=== PATIENT | female | born 1995 | race Caucasian/White ===

== ENCOUNTER 2020-06-23 07:50 | Emergency (ER) | payer OTHER ==
[~2020-06-23] VITALS: Ht 165.1 cm; Wt 59.9 kg
[2020-06-23 07:59] VITALS: BP 122/72
== END 2020-06-23 08:17 | disposition home or self-care (01) ==
LOC: ER 07:53
DX: J06.9 Acute upper respiratory infection, unspecified (principal)

== ENCOUNTER 2020-11-07 17:38 | Emergency (ER) | payer OTHER ==
[~2020-11-07] VITALS: Ht 165.1 cm; Wt 57.6 kg
[2020-11-07 18:06] VITALS: BP 115/83
--- NOTE | 2020-11-07 18:16 | NUR ---
URINE SENT TO LAB
[2020-11-07 18:27] LABS: BILIRUBIN,URINE Negative (NEGATIVE); COLOR,URINE YELLOW (YELLOW); LEUKOCYTE ESTERASE ,URINE Negative (NEGATIVE); NITRITE, URINE Negative (NEGATIVE); PH,URINE 5.5 (5.0-8.0); PROTEIN,URINE Negative (NEGATIVE); UGLUCOSE Negative (NEGATIVE); UROBILINOGEN,URINE 0.2 EU/dL (0.2)
[2020-11-07 18:37] LABS: BACTERIA,URINE Few /HPF (None Seen); RBC,URINE 0-2 /HPF (0-2); WBC,URINE 0-2 /HPF (0-3)
[2020-11-07] MEDS ORDERED: IBUPROFEN 600 MG TABLET PO ONE (19:00)
--- NOTE | 2020-11-07 19:47 | NUR ---
PT LEFT WITHOUT ACI
== END 2020-11-07 19:47 | disposition home or self-care (01) ==
LOC: ER 17:41
DX: N34.2 Other urethritis (principal)
CPT/HCPCS: 81001; 84703-TC

== ENCOUNTER 2021-07-20 14:07 | Emergency (ER) | payer OTHER ==
[~2021-07-20] VITALS: Ht 165.1 cm; Wt 62.6 kg
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
[2021-07-20] MEDS ORDERED: CEPH500C2 PO (14:52)
[2021-07-20] MEDS ORDERED: MUPI22OI2 TP (14:53)
[2021-07-20] MEDS: BACITRACIN ZINC OINT PACKET 1 EA PACKET TP ONE (15:03)
[2021-07-20 15:33] VITALS: BP 126/85
--- NOTE | 2021-07-20 15:33 | NUR ---
Patient discharged to home in stable condition. Written and verbal after care instructions given. Patient verbalizes understanding of instruction.
== END 2021-07-20 15:33 | disposition home or self-care (01) ==
LOC: ER 14:10
DX: L03.113 Cellulitis of right upper limb (principal)

== ENCOUNTER 2022-11-09 19:17 | Emergency (ER) | payer OTHER ==
[~2022-11-09] VITALS: Ht 165.1 cm; Wt 64.4 kg
[~2022-11-09 19:17] MED LIST: CEPH500C2 PO; MUPI22OI2 TP
--- NOTE | 2022-11-09 19:47 | NUR ---
BIBS C/O VAGINAL PAIN X 3 DAYS PAIN 9/10 ON PAIN SCALE. PT A/OX4. TOLERATING R/A WELL WITH NO RESP DISTRESS. SAFETY MEASURES IN PLACE.
[2022-11-09 20:49] LABS: BILIRUBIN,URINE NEGATIVE (NEGATIVE); COLOR,URINE YELLOW (YELLOW); LEUKOCYTE ESTERASE ,URINE TRACE (NEGATIVE); NITRITE, URINE NEGATIVE (NEGATIVE); PH,URINE 7.5 (5.0-8.0); PROTEIN,URINE NEGATIVE (NEGATIVE); UGLUCOSE NEGATIVE (NEGATIVE); UROBILINOGEN,URINE 0.2 EU/dL (0.2)
[2022-11-09] MEDS ORDERED: CLOT15CR27 TP (21:04)
--- NOTE | 2022-11-09 21:08 | NUR ---
Patient discharged to home in stable condition. RX Written and verbal after care instructions given. Patient verbalizes understanding of instruction.
[2022-11-09 21:09] VITALS: BP 121/71
[2022-11-09 21:47] LABS: BACTERIA,URINE Moderate /HPF (None Seen); RBC,URINE 0-2 /HPF (0-2); SQUAMOUS EPITHELIAL CELL,UR Moderate /HPF (None Seen)
== END 2022-11-09 21:09 | disposition home or self-care (01) ==
LOC: ER 19:22
DX: B37.31 Acute candidiasis of vulva and vagina (principal); Z79.899 Other long term (current) drug therapy
CPT/HCPCS: 81001; 82962-TC; 87086-TC